=== PATIENT | male | born 1965 | race Caucasian/White ===

== ENCOUNTER 2019-09-03 17:05 | Outpatient (CLI) | payer OTHER, SELFPAY ==
--- NOTE | ~2019-09-03 | XR_ITS ---
XR tibia fibula RT 2V 09/03/2019 18:01 INDICATION: Right lower leg pain and swelling for 3 days PROCEDURE: 2 views right tibia/fibula COMPARISON: No prior studies for comparison. FINDINGS: Fracture, dislocation or subluxation is not identified. The soft tissues appear within norm al limits. No foreign bodies are identified. IMPRESSION: 1: NO ACUTE BONE OR JOINT ABNORMALITY IDENTIFIED. Reviewed, dictated and finalized at location A.
[2019-09-03 17:26] LABS: Basophils Absolute Auto 0.03 K/mm3 (0.00-0.10); Basophils Percent Auto 0.4 % (0.0-1.0); Eosinophils Absolute Auto 0.13 K/mm3 (0.02-0.50); Eosinophils Percent Auto 1.8 % (1.0-6.0); Hematocrit 40.2 % (40.0-54.0); Hemoglobin 13.5 g/dL (14.0-18.0); Immature Granulocyte Absolute 0.02 K/mm3 (0.00-0.00); Immature Granulocyte Percent A 0.3 % (0.0-0.0); Lymphocytes Absolute Auto 1.91 K/mm3 (1.10-4.50); Mean Corpuscular HGB Conc 33.6 g/dL (32.0-36.0); Mean Corpuscular Hemoglobin 30.1 pg (27.0-31.0); Mean Corpuscular Volume 89.7 fL (78.0-102.0); Mean Platelet Volume 8.8 fl (8.7-11.0); Monocytes Absolute Auto 0.62 K/mm3 (0.10-0.90); Monocytes Percent Auto 8.8 % (2.0-11.0); Neutrophils Absolute Auto 4.4 K/mm3 (1.7-7.2); Neutrophils Percent Auto 61.7 % (50.0-70.0); Platelet Count Result 294 K/mm3 (150-420); Red Blood Count 4.48 M/mm3 (4.70-6.10); Red Cell Distribution Width 11.9 % (11.6-14.4); White Blood Count 7.1 K/mm3 (4.8-10.8)
[2019-09-03 17:42] LABS: Alanine Aminotransferase 26 U/L (16-63); Albumin Level 4.2 g/dL (3.4-5.0); Alkaline Phosphatase 73 U/L (46-116); Anion Gap 9.2 mmol/L (7-16); Aspartate Amino Transferase 21 U/L (15-37); Bilirubin,Total 0.4 mg/dL (0.00-1.00); Blood Urea Nitrogen 17 mg/dL (7-18); Calcium 8.7 mg/dL (8.5-10.1); Carbon Dioxide 29 mmol/L (21-32); Chloride 103 mmol/L (98-108); Estimated Glomerular Filt Rate > 60; Glucose 84 mg/dL (70-99); Osmolality Calculated 284 mOsm/kg (285-295); Potassium 4.2 mmol/L (3.5-5.1); Sodium 137 mmol/L (136-145); Total Protein 7.1 g/dL (6.4-8.2)
== END 2019-09-03 17:06 | disposition home or self-care (01) ==
LOC: CHSLAB 17:13
PROVIDERS: PCP Family Medicine; Visit Provider Family Medicine
DX: M79.604 Pain in right leg (principal); R60.0 Localized edema
CPT/HCPCS: 36415; 73590; 80053; 85025; 85380

== ENCOUNTER 2020-09-09 17:52 | Emergency (ER) | payer OTHER, SELFPAY ==
--- NOTE | ~2020-09-09 | XR_ITS ---
EXAMINATION: XR chest 1V portable DATE: 09/09/2020 18:18 INDICATION: Syncope. Chest pressure. TECHNIQUE: A single frontal view of the chest was obtained. COMPARISON: Chest 2 views 05/27/2012 FINDINGS: The chest demonstrates clear lungs without pneumonia, pleural effusion, or pneumothorax. Th e heart size is normal. IMPRESSION: 1. No acute cardiopulmonary disease. Reviewed, dictated and finalized at location A.
--- NOTE | 2020-09-09 17:58 | ECG_ITS ---
Measurements Intervals [place] Rate: 57 P: 28 ID: 196 QRS: 33 QRSD: 95 T: 17 QT: 410 QTc: 402 Interpretive Statements SINUS BRADYCARDIA MINIMAL Q WAVES- INFERIOR LEADS BORDERLINE ECG Electronically Signed On 09-09-2020 19:58:31 CDT by Parveen Wooten D.O.
[2020-09-09 18:00] VITALS: BP 119/68; PULSE 58; RESP 18; TEMP 36.6; O2SAT 98
[2020-09-09 18:21] LABS: Basophils Absolute Auto 0.04 K/mm3 (0.00-0.10); Basophils Percent Auto 0.5 % (0.0-1.0); Eosinophils Absolute Auto 0.14 K/mm3 (0.02-0.50); Eosinophils Percent Auto 1.9 % (1.0-6.0); Hematocrit 37.7 % (40.0-54.0); Hemoglobin 12.9 g/dL (14.0-18.0); Immature Granulocyte Absolute 0.05 K/mm3 (0.00-0.00); Immature Granulocyte Percent A 0.7 % (0.0-0.0); Lymphocytes Absolute Auto 1.81 K/mm3 (1.10-4.50); Mean Corpuscular HGB Conc 34.2 g/dL (32.0-36.0); Mean Corpuscular Hemoglobin 30.6 pg (27.0-31.0); Mean Corpuscular Volume 89.3 fL (78.0-102.0); Mean Platelet Volume 8.5 fl (8.7-11.0); Monocytes Absolute Auto 0.66 K/mm3 (0.10-0.90); Monocytes Percent Auto 8.8 % (2.0-11.0); Neutrophils Absolute Auto 4.8 K/mm3 (1.7-7.2); Neutrophils Percent Auto 64.1 % (50.0-70.0); Platelet Count Result 259 K/mm3 (150-420); Red Blood Count 4.22 M/mm3 (4.70-6.10); Red Cell Distribution Width 11.9 % (11.6-14.4); White Blood Count 7.5 K/mm3 (4.8-10.8)
[2020-09-09] MEDS: LACTATED RINGERS 1,000 ML 999 ML IV CONT (18:24)
[2020-09-09 18:46] LABS: Alanine Aminotransferase 30 U/L (16-63); Albumin Level 4.1 g/dL (3.4-5.0); Alkaline Phosphatase 62 U/L (46-116); Anion Gap 13 mmol/L (8-16); Aspartate Amino Transferase 36 U/L (15-37); Bilirubin,Total 0.4 mg/dL (0.00-1.00); Blood Urea Nitrogen 27 mg/dL (7-18); Calcium 8.4 mg/dL (8.5-10.1); Carbon Dioxide 23 mmol/L (21-32); Chloride 105 mmol/L (98-108); Estimated CRCL calculation 80 ml/min; Estimated Glomerular Filt Rate > 60; Glucose 106 mg/dL (70-99); NT Pro B Type Natriuretic Pept 69 pg/mL (0-125); Osmolality Calculated 297 mOsm/kg (285-295); Potassium 3.9 mmol/L (3.5-5.1); Sodium 141 mmol/L (136-145); Total Protein 6.9 g/dL (6.4-8.2); Troponin I 4.6 ng/L (0.00-60.4)
--- NOTE | 2020-09-09 18:49 | ED.DIZZY ---
HPI - Dizziness General Chief Complaint: Syncope Stated Complaint: AMB Time Seen by Provider: 09/09/20 18:05 Source: patient, family and RN notes reviewed Mode of arrival: ambulatory History of Present Illness HPI Narrative: Patient states he was at for a relative, got to feeling he needed to smoke some cannabis to relax. He went to do this, started smoking it, and felt presyncopal, had a moderately light headed episode that lasted a few minutes, felt diaphoretic, and got bit nauseated. He has not had this before after smoking cannabis before. MD elicited complaint: dizziness, lightheadedness and near syncope Onset (ago): minute(s) Timing: sudden onset Severity: moderate Description: lightheadedness, off-balance and near-syncope Context: other (drug use) History of similar symptoms: No Exacerbating factors: standing Relieving factors: remaining still (sitting down) Associated symptoms: nausea (brief nausea which resolved) Related Data Home Medications Medication Instructions Recorded Confirmed No Home Medications 09/09/20 09/09/20 Allergies Allergy/AdvReac Type Severity Reaction Status Date / Time No Known Allergies Allergy Verified 09/09/20 18:11 Review of Systems Constitutional: Constitutional: Reports no additional constitutional complaints Eyes: Eyes: Reports no additional eye complaints ENT: Reports system reviewed and no additional complaints, except as documented Cardiovascular: Cardiovascular: Reports no additional cardiovascular complaints Respiratory: Respiratory: Reports no additional respiratory complaints Gastrointestinal: Gastrointestinal: Reports no additional gastrointestinal complaints Genitourinary: Genitourinary: Reports no additional male genitourinary complaints Musculoskeletal: Musculoskeletal: Reports no additional musculoskeletal complaints Integumentary/Breasts: Skin/Breast: Reports system reviewed and no additional complaints, except as docu Neurologic: Reports system reviewed and no additional complaints, except as documented Psychiatric: Psychiatric: Reports no additional psychiatric complaints Endocrine: Endocrine: Reports no additional endocrine complaints Hematologic/Lymphatic: Hematologic/Lymphatic: Reports no additional hematologic/lymphatic complaints Allergic/Immunologic: Allergic/Immunologic: Reports no additional allergic/immunologic complaints [facility] Past Medical History Medical History (Updated 09/09/20 @ 19:35 by Sohail Brannon MD) Pre-syncope Surgical History Surgical History (Updated 09/09/20 @ 19:00 by Sohail Brannon MD) No significant past surgical history Family History Family History (Updated 09/09/20 @ 19:22 by Sohail Brannon MD) Mother Diabetes mellitus Father Hyperlipemia Social History Social History (Updated 09/09/20 @ 19:21 by Sohail Brannon MD) Smoking status: Never smoker Substance use: current Substance use type: marijuana Living arrangements: with family Gender identity (if verbalized by the patient): Male Sexual Orientation (if Verbalized by the Patient): Straight or Heterosexual Exam Const: General: alert Orientation/consciousness: patient oriented x3 HENMT: Head: normal to inspection Ears: TM's normal bilaterally General nose exam: Normal external nose present Face and sinus: normal facial exam Mouth: Yes Normal oral and palatal mucosa present Throat: posterior oropharynx normal Eyes: Conjunctivae: conjunctivae normal Neck: Neck: normal visual inspection and no lymphadenopathy Chest: Chest palpation & inspection: normal inspection of the chest Resp: Effort & Inspection: normal respiratory effort Auscultation: clear to auscultation bilaterally Cardio: Rate: regular rate Rhythm: regular rhythm GI: Auscultation: normal bowel sounds Back/Spine/Pelvis: Back: no CVA tenderness Skin: Rashes: no rashes Neuro: General: patient oriented x3, moves all extremities and no focal motor defic
[2020-09-09 19:01] LABS: Add Urine Microscopic? NO; Appearance Urine Clear (Clear); Bilirubin Urine Negative (Negative); Blood Urine Negative (Negative); Color Urine Light Yellow (Yellow); Glucose Urine UA Negative (Negative); Ketones Urine Negative (Negative); Leukocyte Esterase Ur Negative LEU/UL (Negative); Nitrate Urine Negative (Negative); Protein Urine Negative (Negative); Urobilinogen Urine 0.2 mg/dL (0.2-1.0); pH Urine 5.5 (5.0-8.0)
[2020-09-09 19:08] LABS: Amphetamine Screen Urine Negative (Negative); Barbiturate Screen Urine Negative (Negative); Benzodiazepines Screen Urine Negative (Negative); Cannabinoid Screen Urine Positive (Negative); Cocaine Screen Urine Negative (Negative); Methadone Screen Urine Negative (Negative); Opiate Screen Urine Negative (Negative); Phencyclidine Screen Urine Negative (Negative)
[2020-09-09 19:29] LABS: D Dimer 0.19 mg/L (0.19-0.50)
[2020-09-09 19:36] VITALS: BP 134/79; PULSE 57; RESP 18; TEMP 36.6; O2SAT 100
== END 2020-09-09 19:43 | disposition home or self-care (01) ==
PROVIDERS: Emergency Provider Emergency Medicine; PCP Family Medicine
DX: R55 Syncope and collapse (principal)
CPT/HCPCS: 36415; 71045; 80053; 80307; 81003; 83880; 84484; 85025; 85380; 93005; 96360; 99283; 99284; J7120

== ENCOUNTER 2020-10-20 11:53 | Outpatient (CLI) | payer OTHER, SELFPAY ==
--- NOTE | ~2020-10-20 | XR_ITS ---
EXAMINATION: XR chest 2V 10/20/2020 12:08 INDICATION: Dyspnea. Covid. PROCEDURE: 2 view chest COMPARISON: 09/09/2020 FINDINGS: Patchy right-sided infiltrates of the mid and upper lung. The cardiomediastinal silhouette is within normal limits. There are no pleural effusions. There is no pneumothorax suspected. IMPRESSION: 1: Patchy right sided infiltrates, suspicious for pneumonia. Reviewed, dictated and finalized at location A.
== END 2020-10-20 11:54 | disposition home or self-care (01) ==
LOC: CHSIMG 11:55
PROVIDERS: PCP Family Medicine; Visit Provider Family Medicine
DX: R06.00 Dyspnea, unspecified (principal)
CPT/HCPCS: 71046

== ENCOUNTER 2021-10-19 19:12 | Emergency (ER) | payer BC, SELFPAY ==
[2021-10-19] VITALS (14 sets, daily range): BP systolic 113–142; BP diastolic 68–87; PULSE 67–84; RESP 17–23; TEMP 36.2–36.4; O2SAT 95–100
--- NOTE | ~2021-10-19 | CT_ITS ---
EXAMINATION: CT brain wo con DATE: 10/19/2021 19:53 INDICATION: SYNCOPE . TECHNIQUE: Computed tomography (CT) of the head was performed without intravenous contrast. The mA wa s adjusted according to patient size. Iterative reconstruction technique was employed. The dose-lengt h product was 756.67 mGy-cm. COMPARISON: None FINDINGS: No acute intracranial hemorrhage or extra-axial fluid collection. No hydrocephalus, mass, or herniation. No acute ischemic infarct. Unremarkable dural venous sinus attenuation. No acute osseous abnormality. Minimal right middle ethmoid air cell mucosal thickening, the remaining aerated spaces are clear. Mild chronic white matter change. Partially empty sella. IMPRESSION: No acute intracranial process. Reviewed, dictated and finalized at location K.
--- NOTE | 2021-10-19 19:15 | ED.SYNCOPE ---
HPI - Syncope General Chief Complaint: Weakness Stated Complaint: AMBULANCE Time Seen by Provider: 10/19/21 19:15 Source: patient Mode of arrival: EMS History of Present Illness HPI narrative: 56-year-old male with a history of hypertension, chronic marijuana use presented to the ER via EMS -- felt lightheaded after smoking marijuana. Called EMS. The patient was noted to be hypotensive and bradycardic with a heart rate in the 40s. The patient had is 10-15 second episodes of lightheadedness /LOC. The patient was noted to have normal blood sugar. He had an EKG which revealed sinus bradycardia without any ST-T changes. The patient received naloxone without any change in his clinical status. No seizure activity. No incontinence. EN route to the hospital the patient was noted to have bradycardia, hypotension and episodes of unresponsiveness. -- Headache which is noted on the top of his head and rated as 4/10. -- On arrival to the ER the patient is noted to be awake and hemodynamically stable. No focal neuro deficits noted. -- The patient has had multiple episodes of syncopal spells similar to this in the past. He presented to the ER around 1 year ago for similar symptoms. The patient uses marijuana on a chronic basis but most of his symptoms appear to have come on after he smoked marijuana. MD complaint: loss of consciousness and felt faint Onset (ago): hour(s) ( Started 1 hour ago.) Prodromal symptoms: none Witnessed: Yes - by EMS Context: at rest Injuries sustained associated with event: none Current symptoms: none History: previous syncopal episode Treatments prior to arrival: none ( He received IV fluids and IV naloxone.) Related Data Home Medications Medication Instructions Recorded Confirmed No Home Medications 10/19/21 10/19/21 Allergies Allergy/AdvReac Type Severity Reaction Status Date / Time No Known Allergies Allergy Verified 10/19/21 19:28 Review of Systems Review of Systems: All systems reviewed & are unremarkable except as noted in HPI and below Constitutional: Constitutional: Reports as per HPI and Reports no additional constitutional complaints Eyes: Eyes: Reports as per HPI and Reports no additional eye complaints ENT: Reports system reviewed and no additional complaints, except as documented and Reports as per HPI Cardiovascular: Cardiovascular: Reports as per HPI and Reports no additional cardiovascular complaints Respiratory: Respiratory: Reports as per HPI and Reports no additional respiratory complaints Gastrointestinal: Gastrointestinal: Reports as per HPI and Reports no additional gastrointestinal complaints Genitourinary: Genitourinary: Reports no additional male genitourinary complaints and Reports as per HPI Musculoskeletal: Musculoskeletal: Reports no additional musculoskeletal complaints and Reports as per HPI Integumentary/Breasts: Skin/Breast: Reports system reviewed and no additional complaints, except as docu and Reports as per HPI Neurologic: Reports system reviewed and no additional complaints, except as documented, Reports dizziness, Reports syncope and Reports headache(s) Psychiatric: Psychiatric: Reports no additional psychiatric complaints and Reports as per HPI Endocrine: Endocrine: Reports no additional endocrine complaints and Reports as per HPI Hematologic/Lymphatic: Hematologic/Lymphatic: Reports no additional hematologic/lymphatic complaints and Reports as per HPI Allergic/Immunologic: Allergic/Immunologic: Reports no additional allergic/immunologic complaints and Reports as per HPI PMFSH Past Medical History Medical History Pre-syncope Surgical History Surgical History No significant past surgical history Family History Family History Mother Diabetes mellitus Father Hyperlipem
--- NOTE | 2021-10-19 19:37 | ECG_ITS ---
Measurements Intervals [place] Rate: 69 P: 55 [place]: 189 QRS: 54 QRSD: 98 T: 27 QT: 374 QTc: 403 Interpretive Statements SINUS RHYTHM MINIMAL Q WAVES- INFERIOR LEADS BASELINE WANDER- V4-V6 BORDERLINE ECG COMPARED TO ECG 09/09/2020 18:08:09 SINUS RHYTHM NOW PRESENT Electronically Signed On 10-19-2021 21:37:41 CDT by Parveen Wooten D.O.
[2021-10-19 20:10] LABS: Basophils Absolute Auto 0.04 K/mm3 (0.00-0.10); Basophils Percent Auto 0.4 % (0.0-1.0); Eosinophils Absolute Auto 0.12 K/mm3 (0.02-0.50); Eosinophils Percent Auto 1.2 % (1.0-6.0); Hematocrit 38.5 % (40.0-54.0); Immature Granulocyte Absolute 0.05 K/mm3 (0.00-0.00); Immature Granulocyte Percent A 0.5 % (0.0-0.0); Lymphocytes Absolute Auto 1.32 K/mm3 (1.10-4.50); Lymphocytes Percent Auto 13.5 % (18.0-42.0); Mean Corpuscular HGB Conc 33.8 g/dL (32.0-36.0); Mean Corpuscular Hemoglobin 30.2 pg (27.0-31.0); Mean Corpuscular Volume 89.5 fL (78.0-102.0); Monocytes Absolute Auto 0.61 K/mm3 (0.10-0.90); Monocytes Percent Auto 6.2 % (2.0-11.0); Neutrophils Absolute Auto 7.6 K/mm3 (1.7-7.2); Neutrophils Percent Auto 78.2 % (50.0-70.0); Platelet Count Result 284 K/mm3 (150-420); Red Cell Distribution Width 11.9 % (11.6-14.4); White Blood Count 9.8 K/mm3 (4.8-10.8)
[2021-10-19 20:18] LABS: Partial Thromboplastin Time 21.7 SEC (23.90-30.70); Prothrombin Time 10.5 Seconds (9.50-12.10)
[2021-10-19 20:25] LABS: Lactic Acid Reflex 1.5 mmol/L (0.4-2.0)
[2021-10-19 20:29] LABS: Alanine Aminotransferase 24 U/L (16-63); Albumin Level 3.7 g/dL (3.4-5.0); Alkaline Phosphatase 74 U/L (46-116); Anion Gap 8 mmol/L (8-16); Aspartate Amino Transferase 19 U/L (15-37); Bilirubin,Total 0.3 mg/dL (0.00-1.00); Blood Urea Nitrogen 36 mg/dL (7-18); Calcium 8.6 mg/dL (8.5-10.1); Carbon Dioxide 25 mmol/L (21-32); Chloride 107 mmol/L (98-108); Estimated CRCL calculation 59 ml/min; Estimated Glomerular Filt Rate 56; Glucose 118 mg/dL (70-99); Osmolality Calculated 299 mOsm/kg (285-295); Potassium 3.6 mmol/L (3.5-5.1); Sodium 140 mmol/L (136-145); Thyroid Stimulating Hormone 1.83 uIU/mL (0.36-3.74); Total Protein 6.4 g/dL (6.4-8.2); Troponin I 7.4 ng/L (0.00-60.4)
--- NOTE | 2021-10-19 20:46 | PC.NURSE ---
EMS NSS running at 125mls/hr. After seeing lab results, ERP ordered for the rest of EMS bag to flow wide open. RN verbalized order and opened the fluids wide open.
[2021-10-19 20:49] LABS: Add Urine Microscopic? NO; Appearance Urine Clear (Clear); Bilirubin Urine Negative (Negative); Blood Urine Negative (Negative); Color Urine Light Yellow (Yellow); Glucose Urine UA Negative (Negative); Ketones Urine Negative (Negative); Leukocyte Esterase Ur Negative (Negative); Nitrate Urine Negative (Negative); Protein Urine Negative (Negative); Specific Grav Ur 1.025 (1.010-1.020); Urobilinogen Urine 0.2 mg/dL (0.2-1.0); pH Urine 5.5 (5.0-8.0)
[2021-10-19 20:59] LABS: Amphetamine Screen Urine Negative (Negative); Barbiturate Screen Urine Negative (Negative); Benzodiazepines Screen Urine Negative (Negative); Cannabinoid Screen Urine Positive (Negative); Cocaine Screen Urine Negative (Negative); Methadone Screen Urine Negative (Negative); Opiate Screen Urine Negative (Negative); Phencyclidine Screen Urine Negative (Negative)
--- NOTE | 2021-10-19 21:32 | PC.NURSE ---
ERP states that he wants to see how pt does while walking. Pt's inital EMS 1000ml NSS bag has finished and RN disconnects pt. Pt stands on his own power and is able to ambulate to the end of the niño and back without issue. Pt denies any dizziness or feeling lightheaded. Pt states he feels much better. RN reports findings to ERP. ERP states pt will be cleared to be discharged.
== END 2021-10-19 21:50 | disposition home or self-care (01) ==
PROVIDERS: Emergency Provider Internal Medicine Critical Care Medicine; PCP Family Medicine
DX: R55 Syncope and collapse (principal); N19 Unspecified kidney failure; R41.82 Altered mental status, unspecified
CPT/HCPCS: 36415; 70450; 80053; 80307; 81003; 83605; 84443; 84484; 85025; 85610; 85730; 93005; 99284

== ENCOUNTER 2022-12-22 11:59 | Outpatient (CLI) | payer BC, SELFPAY ==
--- NOTE | ~2022-12-22 | XR_ITS ---
XR elbow LT min 3V DATE: 12/22/2022 12:19 INDICATION: Posterior elbow pain, chronic TECHNIQUE: 4 views COMPARISON: None FINDINGS: No fracture or dislocation or joint effusion. No periosteal reaction or bone destruction. J oint spaces are well preserved. IMPRESSION: Negative Reviewed, dictated and finalized at location B. [employer] IMPRESSION: Negative
--- NOTE | ~2022-12-22 | XR_ITS ---
XR hand LT min 3V DATE: 12/22/2022 12:19 INDICATION: Cyst popped on top of hand 2 months ago. TECHNIQUE: 3 views COMPARISON: None FINDINGS: There is mild soft tissue swelling of the dorsum of the proximal hand. No fracture, dislocation, periosteal reaction or bone destruction, erosive change or chondrocalcinosi s. Joint spaces are well preserved. IMPRESSION: Mild proximal dorsal soft tissue hand swelling No bony abnormality Reviewed, dictated and finalized at location B. [address]
== END 2022-12-22 12:00 | disposition home or self-care (01) ==
LOC: CHSIMG 12:01
PROVIDERS: PCP Family Medicine; Visit Provider Family Medicine
DX: M25.529 Pain in unspecified elbow (principal); M79.642 Pain in left hand; M79.89 Other specified soft tissue disorders
CPT/HCPCS: 73080; 73130

== ENCOUNTER 2023-04-11 17:15 | Outpatient (CLI) | payer BC, SELFPAY ==
[2023-04-11 17:39] LABS: Basophils Absolute Auto 0.03 K/mm3 (0.00-0.10); Basophils Percent Auto 0.4 % (0.0-1.0); Eosinophils Absolute Auto 0.19 K/mm3 (0.02-0.50); Eosinophils Percent Auto 2.5 % (1.0-6.0); Hematocrit 40.9 % (40.0-54.0); Hemoglobin 13.8 g/dL (14.0-18.0); Immature Granulocyte Absolute 0.02 K/mm3 (0.00-0.00); Immature Granulocyte Percent A 0.3 % (0.0-0.0); Lymphocytes Absolute Auto 2.09 K/mm3 (1.10-4.50); Lymphocytes Percent Auto 27.9 % (18.0-42.0); Mean Corpuscular HGB Conc 33.7 g/dL (32.0-36.0); Mean Corpuscular Hemoglobin 29.6 pg (27.0-31.0); Mean Corpuscular Volume 87.6 fL (78.0-102.0); Mean Platelet Volume 8.4 fl (8.7-11.0); Monocytes Absolute Auto 0.79 K/mm3 (0.10-0.90); Monocytes Percent Auto 10.5 % (2.0-11.0); Neutrophils Absolute Auto 4.4 K/mm3 (1.7-7.2); Neutrophils Percent Auto 58.4 % (50.0-70.0); Platelet Count Result 283 K/mm3 (150-420); Red Blood Count 4.67 M/mm3 (4.70-6.10); Red Cell Distribution Width 11.9 % (11.6-14.4); White Blood Count 7.5 K/mm3 (4.8-10.8)
[2023-04-11 19:06] LABS: Alanine Aminotransferase 39 U/L (16-63); Albumin Level 4.3 g/dL (3.4-5.0); Alkaline Phosphatase 72 U/L (46-116); Anion Gap 7 mmol/L (8-16); Aspartate Amino Transferase 23 U/L (15-37); Bilirubin,Total 0.4 mg/dL (0.00-1.00); Blood Urea Nitrogen 29 mg/dL (7-18); Calcium 8.3 mg/dL (8.5-10.1); Carbon Dioxide 29 mmol/L (21-32); Chloride 101 mmol/L (98-108); Estimated Glomerular Filt Rate > 60; Glucose 82 mg/dL (70-99); Osmolality Calculated 288 mOsm/kg (285-295); Potassium 4.4 mmol/L (3.5-5.1); Sodium 137 mmol/L (136-145); Thyroid Stimulating Hormone 2.47 uIU/mL (0.36-3.74); Total Protein 6.8 g/dL (6.4-8.2)
[2023-04-11 20:46] LABS: Appearance Urine Clear (Clear); Bilirubin Urine Negative (Negative); Blood Urine Negative (Negative); Color Urine Light Yellow (Yellow); Glucose Urine UA Negative (Negative); Ketones Urine Negative (Negative); Leukocyte Esterase Ur Negative (Negative); Nitrate Urine Negative (Negative); Protein Urine Negative (Negative); Specific Grav Ur 1.025 (1.010-1.020); Urobilinogen Urine 0.2 mg/dL (0.2-1.0)
[2023-04-11 20:50] LABS: Add Urine Microscopic? NO
[2023-04-11 20:52] LABS: Creatinine Urine 63.41 mg/dL (40-278); MALB Creatinine Ratio 108.1 mg/g (0-30); Microalbumin Urine Random 68.6 mg/L
== END 2023-04-11 17:16 | disposition home or self-care (01) ==
PROVIDERS: PCP Family Medicine; Visit Provider Family Medicine
DX: I10 Essential (primary) hypertension (principal)
CPT/HCPCS: 36415; 80053; 81003; 82043; 84443; 85025

== ENCOUNTER 2023-09-16 07:32 | Emergency (ER) | payer OTHER, SELFPAY ==
--- NOTE | ~2023-09-16 | XR_ITS ---
EXAMINATION: XR knee RT 3V DATE: 09/16/2023 07:55 INDICATION: Right knee injury and pain. TECHNIQUE: 3 views of right knee were obtained. COMPARISON: Right tibia and fibula radiographs 09/03/2019 FINDINGS: Bone alignment is normal. No fracture. There is mild osteoarthritis of lateral and patellof emoral compartments. There is a small knee joint effusion. IMPRESSION: 1. Mild right knee osteoarthritis. 2. Small right knee joint effusion. Reviewed, dictated and finalized at location E.
[2023-09-16 07:32] VITALS: BP 156/83; PULSE 70; RESP 16; TEMP 36.3; O2SAT 97
--- NOTE | 2023-09-16 07:40 | ED.EXTPRO ---
HPI - Extremity Problem General Chief complaint: Extremity Injury, Lower Stated complaint: right leg injury--WORK COMP Source: patient Mode of arrival: ambulatory Limitations: no limitations History of Present Illness HPI Narrative: 58 year old male presents to the Emergency Department complaining of right knee injury, pain, swelling. 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 States 2 weeks ago he was unloading 100 pound boxes of meat from truck and twisted his knee. It was sore then. Yesterday he was cutting meat and his saw blade broke, which makes a loud sound, and it startled him. He jumped and his knee twisted. Now he is having increased pain and swelling. Pain with weight bearing and movement. Pain radiating up his upper leg. No numbness or tingling. MD Complaint: extremity pain (right knee), extremity swelling (right knee), joint swelling (right knee) and joint paint (right knee) Onset (ago): week(s) (2, worse since yesterday) Pain Consistency: constant Location: right, lower extremity and knee Quality: aching Radiation: proximal (up right upper leg) Relieving factors: nothing Exacerbating factors: weight bearing and walking Associated symptoms: denies other symptoms Related Data Home Medications Medication Instructions Recorded Confirmed losartan 100 1 tablet PO DAILY 05/22/23 05/22/23 mg-hydrochlorothiazide 12.5 mg tablet Allergies Allergy/AdvReac Type Severity Reaction Status Date / Time No Known Allergies Allergy Verified 05/22/23 15:11 Review of Systems Review of Systems: All systems reviewed & are unremarkable except as noted in HPI and below Constitutional: Constitutional: Reports as per HPI Eyes: Eyes: Reports as per HPI ENT: Reports system reviewed and no additional complaints, except as documented Cardiovascular: Cardiovascular: Reports as per HPI Respiratory: Respiratory: Reports as per HPI Gastrointestinal: Gastrointestinal: Reports as per HPI Genitourinary: Genitourinary: Reports no additional male genitourinary complaints Musculoskeletal: Musculoskeletal: Reports no additional musculoskeletal complaints, Reports arthralgias (right knee) and Reports joint swelling (right knee) Integumentary/Breasts: Skin/Breast: Reports system reviewed and no additional complaints, except as docu Neurologic: Reports system reviewed and no additional complaints, except as documented Psychiatric: Psychiatric: Reports no additional psychiatric complaints Endocrine: Endocrine: Reports no additional endocrine complaints Hematologic/Lymphatic: Hematologic/Lymphatic: Reports no additional hematologic/lymphatic complaints Allergic/Immunologic: Allergic/Immunologic: Reports no additional allergic/immunologic complaints PMFSH Past Medical History Medical History Pre-syncope Surgical History Surgical History No significant past surgical history Family History Family History Mother Diabetes mellitus Father Hyperlipemia Social History Social History Smoking status: Former smoker Alcohol intake: never Substance use: current Substance use type: marijuana Do You Feel Safe in your Home?: Yes Lack of Transportation: No Lack of Food: Never True Current Housing: I Have Housing Concerned About Future Housing: No Difficulty Paying Gas/Electric Bills: No Difficulty Paying for Meds: No Currently Unemployed: No Education: High School Diploma/GED Difficulty w/ Childcare or Family Care: No Living arrangements: with family Gender identity (if verbalized by the patient): Male Sexual Orientation (if Verbalized by the Patient): Straight or Heterosexual Exam Const: General: healthy appearing Nutritional Appearance: well nourished Orientation/c
== END 2023-09-16 08:34 | disposition home or self-care (01) ==
PROVIDERS: Emergency Provider Emergency Medicine; PCP Family Medicine
DX: S83.91XA Sprain of unspecified site of right knee, initial encounter (principal); M25.461 Effusion, right knee; M23.91 Unspecified internal derangement of right knee; Z87.891 Personal history of nicotine dependence; X50.0XXA Overexertion from strenuous movement or load, initial encounter
CPT/HCPCS: 73562; 99283; L1830

== ENCOUNTER 2023-09-25 07:54 | Outpatient (RCR) | payer OTHER, SELFPAY ==
--- NOTE | 2023-09-25 08:04 | OPREHPOC ---
Outpatient Therapy Plan of Care This is a Multidisciplinary Plan of Care that may contain components documented by all disciplines (PT, OT, and ST.) PT Problem 1 PT Problem #1 Knowledge Deficit PT Goal 1 Goal / Goal Update 1. independent and compliant with HEP Target Visit 6 PT Problem 2 PT Problem #2 Pain PT Goal 1 Goal / Goal Update 1. reduce pain to 3/10 at worst or less Target Visit 12 PT Problem 3 PT Problem #3 Impaired Range of Motion PT Goal 1 Goal / Goal Update 1. 0-130 degrees or better active R knee rom Target Visit 12 PT Problem 4 PT Problem #4 Impaired Strength PT Goal 1 Goal / Goal Update 1. 5/5 R knee strength 2. 5/5 R ankle DF 3. 4+/5 or better bilateral hip strength overall Target Visit 12 PT Problem 5 PT Problem #5 Impaired Functional Mobil PT Goal 1 Goal / Goal Update 1. LEFS to display 20% or less functional deficits 2. patient to ambulate with normal gait mechanics without an AD or brace. 3. patient to ambulate up and down steps with reciprocal mechanics and 1 hand rail assist or less 4. patient to return to daily walking regime 5. patient to return to prior level work activities/duties Target Visit 12
--- NOTE | 2023-09-25 08:04 | PTOPEVAL1 ---
Assessment and note entered by JT File, PT Evaluation Information Assessment Status Evaluation ICD-10 Condition Codes (PT) M25.561 Onset 09/15/23 Subjective Information patient reports he injured his knee at work. he reports he was running a band saw. he reports the band saw stopped working and he turned to get away from it. he reports he planted his foot and turned, and reports his body moved but his foot did not. he reports he did not end up going to the ER til the next morning. he reports he was unable to work due to swelling in the R knee. he reports he has pain all the time. he reports sitting in the chair he has a pain along the inside and of the knee and up the inner thigh. he reports bending is tight, and he feels like he has a sundar horse in the back of the leg the all the time. he reports he has been better since getting naproxen. he reports he did have xrays in the ER. he reports majority of the pain is across the knee . he has been in an immobilizer since coming to the ER on 09/16/23. Reported Pain Level Pain Score 7: Self Report Assessment PT Clinical Summary mr. bonner is a 58 yo man who presents to skilled PT services for evaluation of an injury to the R knee that occurred at work. his injury is the result of a twisting motion on the R LE to get out of the way of a broken saw. he displays decreased rom, weakness, abnormal gait mechanics, and special testing that indicates an injury to the meniscus of the R knee. he would benefit from continued skilled PT to address his objective/ functional deficits, but would benefit from MRI evaluation of the R knee to assess for surgical needs. patients goal is to return to prior level work and functional performance. Plan of Care Interventions Electrical Stimulation,Gait Training,Hot Pack/Cold Pack,Manual Therapy,Neuro Re-education,Patient/ Caregiver Educati,Therapeutic Activities, Therapeutic Exercise PT Services Indicated Yes Treatment Frequency and 3x weekly for 12 visits Duration These treatments will address the objective and functional deficits as defined above. The patient will be advanced safely and appropriately in order for the patient to progress towards his/her prior level of function. Additional exercises will be introduced and as well as a comprehensive home exercise program upon discharge, if needed, ?to ensure carryover of functional gains achieved in the clinic. This treatment plan has been reviewed and agreement upon by the patient.
--- NOTE | 2023-10-15 07:57 | PTOPPROG ---
Assessment and note entered by [facility] Evaluation Information Assessment Status Progress ICD-10 Condition Codes (PT) M25.561 Onset 09/15/23 Subjective Information Pt. reports that he is better in regards to pain. He states that he still has a sense of fullness in the knee joint. He reports that stairs continues to increase his pain. Assessment PT Clinical Summary Mr. Miller has attended a total of 10 treatment sessions. In this time he has demonstrates progress in regards to pain reports, ROM and strength. He continues to be limited by pain. We will continue with the current POC continuing to improve function and proximal l.e. strength Plan of Care Interventions Electrical Stimulation,Gait Training,Hot Pack/Cold Pack,Manual Therapy,Neuro Re-education,Patient/ Caregiver Educati,Therapeutic Activities, Therapeutic Exercise PT Services Indicated Yes Treatment Frequency and Continue with 2 remaining sessions on pt. POC Duration focusing on normalizing gait and improving remaining strength deficits. These treatments will address the objective and functional deficits as defined above. The patient will be advanced safely and appropriately in order for the patient to progress towards his/her prior level of function. Additional exercises will be introduced and as well as a comprehensive home exercise program upon discharge, if needed, ?to ensure carryover of functional gains achieved in the clinic. This treatment plan has been reviewed and agreement upon by the patient.
--- NOTE | 2023-10-18 08:01 | OPREHPOC ---
Outpatient Therapy Plan of Care This is a Multidisciplinary Plan of Care that may contain components documented by all disciplines (PT, OT, and ST.) PT Problem 1 PT Problem #1 Knowledge Deficit PT Goal 1 Goal / Goal Update 1. independent and compliant with HEP Target Visit 6 Progress Met PT Problem 2 PT Problem #2 Pain PT Goal 1 Goal / Goal Update 1. reduce pain to 3/10 at worst or less Target Visit 12 Progress Not Met PT Problem 3 PT Problem #3 Impaired Range of Motion PT Goal 1 Goal / Goal Update 1. 0-130 degrees or better active R knee rom Target Visit 12 Progress Partially Met PT Problem 4 PT Problem #4 Impaired Strength PT Goal 1 Goal / Goal Update 1. 5/5 R knee strength 2. 5/5 R ankle DF 3. 4+/5 or better bilateral hip strength overall Target Visit 12 Progress Met PT Problem 5 PT Problem #5 Impaired Functional Mobil PT Goal 1 Goal / Goal Update 1. LEFS to display 20% or less functional deficits . not met 2. patient to ambulate with normal gait mechanics without an AD or brace. met 3. patient to ambulate up and down steps with reciprocal mechanics and 1 hand rail assist or less. met 4. patient to return to daily walking regime. not met 5. patient to return to prior level work activities/duties. not met Target Visit 12 Progress Partially Met
--- NOTE | 2023-10-18 08:01 | PTOPREEVAL ---
Assessment and note entered by [facility]T [facility], PT Evaluation Information Assessment Status Re-evaluation ICD-10 Condition Codes (PT) M25.561 Onset 09/15/23 Subjective Information patient reports he has a visit to see an ortho this coming sunday. he reports he is anticipating needing surgery. he reports the knee still bothers him, especially with increased activities/ work on cars and duties around the house. he reports yesterday he had pain in the back of the R thigh yesterday that felt like someone kicked him , and today his calf feels tight. patient reports the R knee hurts if he keeps it straight too long, or if he keeps it bent too long. Reported Pain Level Pain Score 2: Self Report Pain Score 5: Self Report Assessment PT Clinical Summary mr. bonner presents to skilled PT for his 12th skilled therapy visit. he presents with improved R knee rom, strength, gait mechanics, and functional activity performance today. he has met several goals for skilled PT, but still lacks achievement of his functional goals and ability to return to full duty work. patient has an evaluation with the Ortho this coming well, and will likely have surgery on his torn meniscus. continued skilled PT will be put on hold until after his ortho visit, and more likely until after his surgery. Plan of Care Interventions Electrical Stimulation,Gait Training,Hot Pack/Cold Pack,Manual Therapy,Neuro Re-education,Patient/ Caregiver Educati,Therapeutic Activities, Therapeutic Exercise PT Services Indicated Yes Treatment Frequency and hold therapy to see ortho and potentially have Duration meniscus surgery on the R knee. These treatments will address the objective and functional deficits as defined above. The patient will be advanced safely and appropriately in order for the patient to progress towards his/her prior level of function. Additional exercises will be introduced and as well as a comprehensive home exercise program upon discharge, if needed, ?to ensure carryover of functional gains achieved in the clinic. This treatment plan has been reviewed and agreement upon by the patient.
--- NOTE | 2023-11-28 09:34 | PTOPEVAL1 ---
Assessment and note entered by Cem [facility] Evaluation Information Assessment Status Re-evaluation Diagnosis s/p right knee arthroscopy ICD-10 Condition Codes (PT) M25.561 Onset 11/05/23 Subjective Information Pt. re-enters the clinic post right knee arthroscopy. He states that he was on crutches for 7-8 days following surgery. He states that his pain is gradually decreasing since surgery. He reports pain is a 3/10 at rest and increases to 6/ 10 with walking on uneven terrain. He states that he has no set return date for work. 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 He reports he enjoyed walking long distances for exercise, but has held off walking since surgery. He states that his goal is to be able to return to work related duties and reduce pain. Reported Pain Level Pain Score 3: Self Report Assessment PT Clinical Summary Pt. re-enters the clinic 3 weeks post right knee arthroscopy. He presents with slight mobility impairment, slight strength impairment, pain and impaired gait limiting his participation in work related duties. Recommend continued skilled PT in order to improve these areas to allow the pt. to be able to perform all IADL's and work duties without limitation. Goal target dates adjusted to reflect current POC and all pre-operative goals adjusted to reflect current status. Plan of Care Interventions Electrical Stimulation,Gait Training,Hot Pack/Cold Pack,Intermittent Compression,Manual Therapy, Neuro Re-education,Patient/Caregiver Educati, Therapeutic Activities,Therapeutic Exercise PT Services Indicated Yes Treatment Frequency and 3x/week x 12 visits Duration These treatments will address the objective and functional deficits as defined above. The patient will be advanced safely and appropriately in order for the patient to progress towards his/her prior level of function. Additional exercises will be introduced and as well as a comprehensive home exercise program upon discharge, if needed, ?to ensure carryover of functional gains achieved in the clinic. This treatment plan has been reviewed and agreement upon by the patient.
--- NOTE | 2023-11-28 09:41 | OPREHPOC ---
Outpatient Therapy Plan of Care This is a Multidisciplinary Plan of Care that may contain components documented by all disciplines (PT, OT, and ST.) PT Problem 1 PT Problem #1 Knowledge Deficit PT Goal 1 Goal / Goal Update 1. independent and compliant with HEP Target Visit 2 Progress Not Met PT Problem 2 PT Problem #2 Pain PT Goal 1 Goal / Goal Update 1. reduce pain to 1/10 at worst or less Target Visit 12 Progress Not Met PT Problem 3 PT Problem #3 Impaired Range of Motion PT Goal 1 Goal / Goal Update 1. 0-130 degrees or better active R knee rom Target Visit 12 Progress Not Met PT Problem 4 PT Problem #4 Impaired Strength PT Goal 1 Goal / Goal Update 1. 5/5 R knee strength 2. 5/5 R ankle DF 3. 5/5 or better bilateral hip strength overall Target Visit 12 Progress Not Met PT Problem 5 PT Problem #5 Impaired Functional Mobil PT Goal 1 Goal / Goal Update 1. LEFS to display 20% or less functional deficits . not met 2. patient to ambulate with normal gait mechanics without an AD or brace. met 3. patient to ambulate up and down steps with reciprocal mechanics and 1 hand rail assist or less. met 4. patient to return to daily walking regime. not met 5. patient to return to prior level work activities/duties. not met Target Visit 12 Progress Not Met
--- NOTE | 2023-11-29 07:32 | PCPTNOTE ---
No call, no show. VM left for pt.
--- NOTE | 2023-12-10 07:00 | PCPTNOTE ---
Cancelled session. Reports he has covid.
== END 2023-12-24 23:59 | disposition home or self-care (01) ==
LOC: CHSPT 07:54
PROVIDERS: PCP Family Medicine; Visit Provider Orthopaedic Surgery
DX: M25.561 Pain in right knee (principal)
CPT/HCPCS: 97014; 97110; 97112; 97150; 97161; 97530; G0283

== ENCOUNTER 2023-10-06 07:38 | Outpatient (CLI) | payer OTHER, SELFPAY ==
--- NOTE | ~2023-10-06 | MR_ITS ---
EXAMINATION: MR knee RT wo con DATE: 10/06/2023 08:32 INDICATION: Right knee pain TECHNIQUE: Magnetic resonance imaging (MRI) of the right knee was performed without intravenous contr ast. Sequences included coronal PD-weighted FSE, coronal PD-weighted FS FSE, sagittal T2-weighted FS E, sagittal PD-weighted FS FSE and axial PD weighted fat saturated FSE. COMPARISON: None. FINDINGS: Medial compartment: Complex tear of the body and posterior horn of the medial meniscus with longitudinal horizontal tear plane extending to the inferior articular surface as well as an intersecting vertical radial versus p arrot beak configuration tear plane at the posterior horn. Partial-thickness chondral fissuring along the lateral margin of the central weightbearing medial femoral condyle. Remaining cartilage in the m edial compartment is normal. Lateral compartment: Partially discoid lateral meniscus with small radial tear plane along the inner free edge at the junc tion of the anterior horn and anterior body of the lateral meniscus. Articular cartilage is normal. Patellofemoral compartment: Full and near full-thickness chondral fissuring at the cephalad aspect of the patellar apical ridge a nd at the central to inferior aspect of the medial patellar facet, bladder with mild underlying subar ticular edema-like signal change. Trochlear cartilage is normal. Ligaments and tendons: Anterior and posterior cruciate ligaments are normal. The medial collateral ligament and fibular yoav ateral ligament complex are normal. The extensor mechanism is normal. The visualized medial and later al hamstring tendons as well as the iliotibial band are normal. Fluid: Small right knee joint effusion. No loose osteochondral bodies identified. Moderate sized Marie's cys t. Epimysial edema along the proximal gastrocnemius muscle bellies more prominent at the medial head where there is also mild feathery muscular edema. This could be related to low-grade muscle strain or partial rupture of the Marie's cyst with leakage of fluid into the surrounding soft tissue planes. Osseous/other: Normal marrow signal. No fracture or pathologic marrow replacing process. IMPRESSION: 1. Complex tear of the body and posterior horn of the medial meniscus. 2. 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 3. Mild patellofemoral osteoarthritis with moderate and high-grade patellar chondromalacia and minima l osteoarthritis in the medial compartment with moderate grade chondral malacia along the lateral mar gin of the central weightbearing medial femoral condyle. 4. Small right knee joint effusion and moderate-sized Marie's cyst. 5. Increased fluid signal at the periphery of the proximal gastrectomy medius muscle prominent at the medial head which could be related to low-grade muscle strain or partial rupture of the Marie's cyst with extravasation of fluid into the adjacent soft tissue planes. Reviewed, dictated and finalized at location A. IMPRESSION: 1. Complex tear of the body and posterior horn of the medial meniscus. 2. Discoid lateral meniscus with small radial tear along the inner free edge at the junction of the body and anterior horn. 3. Mild patellofemoral osteoarthritis with moderate and high-grade patellar cho ndromalacia and minimal osteoarthritis in the medial compartment with moderate grade chondral malacia along the lateral margin of the central weightbearing me dial femoral condyle. 4. Small right knee joint effusion and moderate-sized Marie's cyst. 5. Increased fluid signal at the periphery of the proximal gastrectomy medius m uscle prominent at the medial head which could be related to low-grade muscle s train or partial rupture of the Marie'
== END 2023-10-06 07:39 | disposition home or self-care (01) ==
LOC: CHSIMG 07:39
PROVIDERS: PCP Family Medicine; Visit Provider Family Medicine
DX: M25.561 Pain in right knee (principal); M23.8X1 Other internal derangements of right knee; M71.21 Synovial cyst of popliteal space [Baker], right knee
CPT/HCPCS: 73721

== ENCOUNTER 2023-10-30 12:10 | Outpatient (CLI) | payer OTHER, SELFPAY ==
[2023-10-30 13:39] LABS: Anion Gap 9 mmol/L (4-12); Blood Urea Nitrogen 16 mg/dL (9-20); Calcium 8.8 mg/dL (8.4-10.2); Carbon Dioxide 31 mmol/L (22-30); Chloride 90 mmol/L (98-107); Estimated Glomerular Filt Rate > 60; Glucose 87 mg/dL (65-110); Potassium 4.6 mmol/L (3.4-5.0); Sodium 130 mmol/L (137-145)
== END 2023-10-30 12:11 | disposition home or self-care (01) ==
LOC: ANHSURGERY 12:16
PROVIDERS: Anesthesiology; PCP Family Medicine; Visit Provider Orthopaedic Surgery
DX: I10 Essential (primary) hypertension (principal); Z79.899 Other long term (current) drug therapy; Z01.818 Encounter for other preprocedural examination
CPT/HCPCS: 36415; 80048

== ENCOUNTER 2023-11-05 00:23 | Day surgery (SDC) | payer OTHER, SELFPAY ==
[2023-10-29 11:09] VITALS: BMI 35.6
--- NOTE | 2023-10-29 11:11 | PC.NURSE ---
Report to the Outpatient Waiting Room, entrance under the green pavilion located off [facility], at time _0800_ on date _[id number]_. Planned Procedure Time: _1000_.? Time changes happen often and if your time is changed the preop area will call you the afternoon before. - You and your visitor will be asked to self-screen and do not enter if you have any COVID symptoms. Please call surgeon if you need to reschedule. - A mask is optional within the hospital at this time. Patients may have clear liquids (water, carbonated beverages, clear teas, apple juice) until 3 hours prior to surgery with a maximum of 20 ounces. - No food from midnight until time of surgery and no smoking Take only the following medications with a SIP of water on the morning of surgery: Metoprolol DO NOT STOP ANY OF YOUR OTHER PRESCRIPTION MEDICATIONS PRIOR TO SURGERY EXCEPT THE FOLLOWING Medications to discontinue per physician None__ Please no make-up, nail romanian, hairspray, perfume, deodorant, or body powder the day of surgery.? No jewelry (including any body piercings) or valuables the day of surgery, leave them at home.? Please take a shower or bath the night before, or the morning of, surgery with an antibacterial soap.? Wear comfortable, loose fitting clothing.? - Jewelry must be removed prior to entering the operating room.? Rings and piercings that are not removed may be cut off. - The hospital will not accept responsibility for valuables.? - Please leave all valuables, including medications, at home the day of surgery. If you are going home after surgery, a licensed log truck driver must drive you home.? - NO public transportation without another adult if you receive anesthesia. - We recommend that an adult stay with you for 24 hours following discharge. - We also recommend that you do not drive, make important decision, drink alcoholic beverages, or take any drugs that were not prescribed by your health care provider for at least 24 hours after your discharge time. Follow any additional instructions given to you from your surgeon. Telephone instructions given to _Venancio__and asked if any additional questions and then verbalized understanding. Patient advised to call surgeon office or pre surgery nurse liaison [phone] if any additional questions.
--- NOTE | 2023-11-01 20:07 | PM.IMHP ---
H&P: HPI History of Present Illness Date/Time: 11/01/23 20:07 Chief Complaint: Patient has a medial meniscal tear right knee. He has failed conservative treatment and would like to proced with Arthroscopy, partial menisectomy, proceed as indicated. Review of Systems Review of Systems: All systems reviewed & are unremarkable except as noted in HPI and below PMFSH Past Medical History Medical History Pre-syncope Surgical History Surgical History No significant past surgical history Family History Family History Mother Diabetes mellitus Father Hyperlipemia Social History Social History (Updated 10/23/23 @ 09:32 by BRANDON Messer) Years smoked: 23 Smoking status: Former smoker Tobacco type: cigarettes Second hand tobacco smoke exposure: Yes Smoking end date: 10/28/05 Alcohol intake: never Substance use: current Substance use type: marijuana Other substance usage details: 3 to 4 one hits a day Do You Feel Safe in your Home?: Yes Lack of Transportation: No Lack of Food: Never True Current Housing: I Have Housing Concerned About Future Housing: No Difficulty Paying Gas/Electric Bills: No Difficulty Paying for Meds: No Currently Unemployed: No Education: Associate Degree Difficulty w/ Childcare or Family Care: No Living arrangements: with family 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 Gender identity (if verbalized by the patient): Male Sexual Orientation (if Verbalized by the Patient): Straight or Heterosexual Spiritual care concerns: No Meds Home Medications and Allergies Home Medications Medication Instructions Recorded Confirmed Type losartan 100 1 tablet PO DAILY 05/22/23 10/29/23 History mg-hydrochlorothiazide 12.5 mg tablet metoprolol succinate 25 mg 12.5 mg PO DAILY 10/29/23 10/29/23 History tablet,extended release 24 hr Allergies Allergy/AdvReac Type Severity Reaction Status Date / Time No Known Allergies Allergy Verified 10/29/23 11:00 Exam Narrative: Patient has catching and locking of his right knee. He has a positive McMurr's, and joint line tenderness. He walks with an antalgic gait. Eyes: General: appearance normal, both eyes and all related structures Neck: Neck: supple Resp: Effort & Inspection: normal respiratory effort Cardio: Rate: regular rate Rhythm: regular rhythm Elbow X-Ray 12/22/22 Hand X-Ray 12/22/22 Knee X-Ray 09/16/23 Knee MRI 10/06/23 Tibia/Fibula X-Ray 09/03/19 Assessment and Plan Assessment and plan (1) Acute medial meniscus tear of right knee: Code(s): S83.241A - Other tear of medial meniscus, current injury, right knee, initial encounter Status: Acute Assessment and Plan: Patient has catching and locking of his Right knee. He has a large medial meniscal tear and a discoid lateral meniscus. He has failed conservative treatment and would like to proceed with arthroscopy, partial menisectomy, proceed as indicated. I deiscussed risks, benefiits, limitatins and alternatives in detail. Will proceed. (2) Discoid meniscus of right knee: Code(s): Q68.6 - Discoid meniscus Status: Acute
[2023-11-05] VITALS (9 sets, daily range): BP systolic 123–149; BP diastolic 62–89; PULSE 59–73; RESP 10–18; TEMP 36.3–36.7; O2SAT 96–100; BMI 34.5
--- NOTE | 2023-11-05 08:11 | WPDANESEPPF ---
Anes - Initial Pre Proc Eval Procedure: Operation Date: 11/05/23 10:00 Proposed Procedures p Arthroscopy Right Knee with Partial Meniscectomy, Proceed as Indicated - Yoel Gibbons MD Date/Time: 11/05/23 08:11 Surgeon: Yoel Gibbons MD Pre Op Diagnosis: Rt Knee Med Meniscal Tear Patient Data Age: 58 Gender: M Height: 1.68 m Weight: 97.2 kg Allergies Allergy/AdvReac Type Severity Reaction Status Date / Time No Known Allergies Allergy Verified 11/05/23 08:06 Home Medications Medication Instructions Recorded Confirmed Type losartan 100 1 tablet PO DAILY 05/22/23 10/29/23 History mg-hydrochlorothiazide 12.5 mg tablet metoprolol succinate 25 mg 12.5 mg PO DAILY 10/29/23 11/05/23 History tablet,extended release 24 hr Patient hx anesthesia problems: none Family hx anesthesia problems: none Results Review: All pre-operative results and documents have been reviewed as part of the pre-operative evaluation. [facility] Past Medical History Medical History Pre-syncope Surgical History Surgical History No significant past surgical history Family History Family History Mother Diabetes mellitus Father Hyperlipemia Social History Social History Years smoked: 23 Smoking status: Former smoker Tobacco type: cigarettes Second hand tobacco smoke exposure: Yes Smoking end date: 10/28/05 Alcohol intake: never Substance use: current Substance use type: marijuana Other substance usage details: 3 to 4 one hits a day Do You Feel Safe in your Home?: Yes Lack of Transportation: No Lack of Food: Never True Current Housing: I Have Housing Concerned About Future Housing: No Difficulty Paying Gas/Electric Bills: No Difficulty Paying for Meds: No Currently Unemployed: No Education: Associate Degree Difficulty w/ Childcare or Family Care: No Living arrangements: with family Occupation/Education: occupation 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 ) Neurological: alert and oriented Last oral intake: >/= 8 hours ASA classification: III Emergent: no Anesthetic plan: proceed Anesthesia type and monitoring: general LMA and standard monitoring Results Review: All pre-operative results and documents have been reviewed as part of the pre-operative evaluation. HTN, hx of palpitations, bigeminy, pt started on b saurav and did take it this morning. DWIGHT, unable to tolerate CPAP. Informed Consent: The patient's anesthetic plan and its attendant risks and benefits were discussed with the patient/family/POA. Questions were solicited and answers provided to the satisfaction of the patient/family/POA.
[2023-11-05] MEDS: ACETAMINOPHEN 500 MG TABLET 1000 MG PO (08:28)
[2023-11-05] MEDS: KETOROLAC 15 MG/ML VIAL (*BKC) IV PUSH (08:29)
[2023-11-05 08:35] LABS: Sodium 135 mmol/L (137-145)
--- NOTE | 2023-11-05 09:09 | WPDHPUPDATE1 ---
History and Physical Update Update Date/Time: 11/05/23 09:09 History and Physical has been reviewed, including an updated exam of the patient. There are NO changes in the patient's condition. Risks, benefits, and alternatives have been discussed and questions answered. Patient agrees to proceed with procedure.
[2023-11-05] MEDS: ceFAZolin 2 GM/D5W 50 ML 2 GM/50 ML BAG IVPB (09:53)
--- NOTE | 2023-11-05 10:35 | W.PM.PROC2 ---
Procedure Note - Detailed Date of Procedure 11/05/23 Pre-op Diagnosis Right Knee Medial and Lateral Meniscal Tear Post-op Diagnosis Same Procedure Performed RIGHT knee arthroscopy with partial meniscectomy, medial and lateral. Surgeon Yoel Gibbons MD Anesthesia General Description of Procedure Patient brought to operating room # 8. An anesthetic was administered. The knee was sterilely prepped and draped in the usual manner. Standard portals were used. Superior medial portal was used for the outflow cannula, inferior lateral portal was used for the scope, inferior medial portal was used for the instruments. Arthroscopy was performed, the patellar femoral joint degenerative changes. The medial compartment showed a complex tear. The lateral compartment showed a complex tear with an enlarged meniscus. The ACL was intact. Using baskets and david the meniscal tears were trimmed back to a stable base so the nothing further could be pulled into the joint. Any loose or delaminated fragments were gently trimmed to a stable base. The medial compartment showed grade 3 changes in the area of the tear, which was debrided. At this point the instruments were withdrawn, sutures placed and patient left the operating room in satisfactory condition. Estimated Blood Loss 20 Drains No Packing No Pathology None sent Complications No immediate complications Condition Stable Disposition PACU [facility] Billing Surgery - Charge Forward: Surgery Billing ([id number] Med & Lat Meniscetomy)
[2023-11-05] MEDS: LACTATED RINGERS 1,000 ML 30 ML IV CONT ×2 (10:44→11:38)
[2023-11-05] MEDS: ONDANSETRON INJ 4 MG/2 ML VIAL IV PUSH (11:34)
[2023-11-05] MEDS: oxyCODONE HCL (*CRX) 5 MG TAB IR PO (11:54)
== END 2023-11-05 12:48 | disposition home or self-care (01) ==
PROVIDERS: Anesthesiology; PCP Family Medicine; Visit Provider Orthopaedic Surgery
PROC: (CPT 29870; principal; 2023-11-05 10:00)
DX: S83.231A Complex tear of medial meniscus, current injury, right knee, initial encounter (principal); S83.271A Complex tear of lateral meniscus, current injury, right knee, initial encounter; Q68.6 Discoid meniscus; E66.9 Obesity, unspecified; Z68.34 Body mass index [BMI] 34.0-34.9, adult; Z87.891 Personal history of nicotine dependence; X58.XXXA Exposure to other specified factors, initial encounter
CPT/HCPCS: 29880; 36415; 84295; A9270; J0690; J1100; J1885; J2250; J2405; J2704; J3010; J7120

== ENCOUNTER 2023-12-09 08:40 | Emergency (ER) | payer BC, SELFPAY ==
[2023-12-09] VITALS (8 sets, daily range): BP systolic 113–135; BP diastolic 71; PULSE 63–110; RESP 14–23; TEMP 36.2; O2SAT 97–100
--- NOTE | ~2023-12-09 | CT_ITS ---
EXAMINATION: CT brain wo con DATE: 12/09/2023 09:53 INDICATION: Syncope and weakness TECHNIQUE: Computed tomography (CT) of the head was performed without intravenous contrast. Sagittal and coronal reconstructions were performed. The mA was adjusted according to patient size. Iterative reconstruction technique was employed. The dose-length product was 681.00 mGy-cm. COMPARISON: head CT dated 10/19/2021 FINDINGS: No acute intracranial hemorrhage, acute infarction or abnormal extra axial fluid collection. There is mild scattered white matter hypoattenuation consistent with chronic small vessel ischemic disease. A gain seen is a empty sella with small amount of pituitary tissue appearing flattened along the floo r of the otherwise CSF filled sella. Ventricles are normal and symmetric. No mass/mass effect. Mucosa l thickening in the paranasal sinuses, most prominent at the bilateral ethmoid sinuses. The orbits an d mastoid air cells are normal. IMPRESSION: 1. No acute intracranial process. 2. Chronic empty sella . Reviewed, dictated and finalized at location A. OUT PERSON
--- NOTE | ~2023-12-09 | XR_ITS ---
EXAMINATION: XR chest 2V DATE: 12/09/2023 09:54 INDICATION: Syncope, weakness and cough TECHNIQUE: PA and lateral views of the chest were obtained. COMPARISON: Chest radiograph dated 10/20/20 FINDINGS: The lungs are clear with no focal airspace opacities, pulmonary edema, pleural effusion or pneumothor ax. The cardiomediastinal silhouette is normal. Mild midthoracic spondylosis with chronic minimal to mild anterior wedging of a few mid thoracic vertebral bodies, likely T5-T9. IMPRESSION: 1. No acute cardiopulmonary disease. Reviewed, dictated and finalized at location A. [employer]
--- NOTE | 2023-12-09 08:48 | ECG_ITS ---
Test Date: 2023-12-09 08:56:06 Measurements Intervals Lindstrom Rate: 71 P: 32 MD: 180 QRS: 27 QRSD: 106 T: 34 QT: 387 QTc: 421 Interpretive Statements SINUS RHYTHM WITH FREQUENT SUPRAVENTRICULAR PREMATURE COMPLEXES IN A BIGEMINAL PATTERN BASELINE ARTIFACT- I, III, AVR, AVL, AVF, V1-V6 ABNORMAL ECG No previous ECG available for comparison Electronically Signed On 12-09-2023 09:29:29 [employer] by Parveen Wooten D.O.
--- NOTE | 2023-12-09 08:54 | ED_ITS ---
HPI - Weakness General Chief complaint: Weakness Stated complaint: weakness Time Seen by Provider: 12/09/23 08:45 Source: patient Mode of arrival: EMS Limitations: no limitations History of Present Illness HPI Narrative: patient is a 58-year-old male with a near syncopal episode prior to arrival. 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 He gets lightheaded and dizzy. He called EMS. He sees Cardiology for elevated blood pressure control. There is a history per patient that he has atrial fibrillation but there is no blood thinners (EKG in the emergency room today does not show AFib but there is bigeminy supraventricular). He is on a beta-saurav. This is not his 1st time having this syndrome where he has had at least 5 or 6 more times in the past year. MD Complaint: generalized weakness ( Near-syncope episode) Onset (ago): hour(s) (1) Duration: intermittent Location: generalized Migration: none Severity: mild Severity scale (1-10): 2 Quality: numbness ( bilateral hands) Relieving factors: none Exacerbating factors: none Context: other ( exposure to sick contacts at home) Associated symptoms: denies other symptoms Related Data Home Medications Medication Instructions Recorded Confirmed losartan 100 1 tablet PO DAILY 05/22/23 12/04/23 mg-hydrochlorothiazide 12.5 mg tablet metoprolol succinate 25 mg 12.5 mg PO DAILY 10/29/23 12/04/23 tablet,extended release 24 hr Allergies Allergy/AdvReac Type Severity Reaction Status Date / Time No Known Allergies Allergy Verified 12/04/23 12:58 Review of Systems Review of Systems: All systems reviewed & are unremarkable except as noted in HPI and below Constitutional: Constitutional: Reports no additional constitutional complaints Eyes: Eyes: Reports no additional eye complaints ENT: Reports system reviewed and no additional complaints, except as documented Cardiovascular: Cardiovascular: Reports no additional cardiovascular complaints Respiratory: Respiratory: Reports no additional respiratory complaints Gastrointestinal: Gastrointestinal: Reports no additional gastrointestinal complaints Genitourinary: Genitourinary: Reports no additional male genitourinary complaints Musculoskeletal: Musculoskeletal: Reports no additional musculoskeletal complaints Integumentary/Breasts: Skin/Breast: Reports system reviewed and no additional complaints, except as docu Neurologic: Reports system reviewed and no additional complaints, except as documented Psychiatric: Psychiatric: Reports no additional psychiatric complaints Endocrine: Endocrine: Reports no additional endocrine complaints Hematologic/Lymphatic: Hematologic/Lymphatic: Reports no additional hematologic/lymphatic complaints Allergic/Immunologic: Allergic/Immunologic: Reports no additional allergic/immunologic complaints [facility] Past Medical History Medical History Pre-syncope Surgical History Surgical History History of knee surgery No significant past surgical history Family History Family History Mother Diabetes mellitus Father Hyperlipemia Social History Social History Years smoked: 23 Smoking status: Former smoker Tobacco type: cigarettes Second hand tobacco smoke exposure: Yes Smoking end date: 10/28/05 Alcohol intake: never Substance use: current Substance use type: marijuana Other substance usage details: 3 to 4 one hits a day Current Housing: Decline to Answer Concerned About Future Housing: Decline to Answer Difficulty Paying Gas/Electric Bills: Decline to Answer Difficulty Paying for Meds: Decline to Answer Currently Unemployed: Decline to Answer Education: Decline to Answer Difficulty w/ Childcare or Family Care: Decline to Answer Living arrangements: with family Occupation/Education: occupation 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 Gender identity (if verbalized by the patient): Male Sexual Orientation (if Verbalized by the Patient): Straight or Heterosexual Spiritual care concerns: No Exam Const: General: healthy appearing Nutritional Appearance: well nourished Orientation/consciousness: patient oriented x3 Limitations: no limitations HENMT: Head: normal to inspection Ears: external ears normal Face/Nose/Sinus: Normal external nose present Eyes: Conjunctivae: conjunctivae normal Pupils: Equal, round and reactive pupils present EOM: EOMs intact bilaterally Neck: Neck: normal visual inspection Chest: Chest palpation & inspection: normal inspection of the chest Resp: Effort & Inspection: normal respiratory effort and not labored Auscultation: clear to auscultation bilaterally and no crackles Cardio: Rate: regular rate Rhythm: regular rhythm Heart sounds: no murmurs GI: Inspection: non-distended GI Palp: Yes Soft to palpation and No Tenderness to palpation present (GI) Auscultation: normal bowel sounds : General: Yes bladder normal to palpation Back/Spine/Pelvis: Back: no CVA tenderness Skin: General skin exam: normal color Rashes: no rashes Wounds: no wounds Neuro: General: patient oriented x3 Cranial nerves: Yes Nystagmus not present Speech: normal speech Gait exam (Neuro): Normal gait present Other: fast exam negative GCS is 15 NIH score 0 Extrem: General: normal to inspection Psych: Mental Status: mental status grossly normal Affect: normal affect Attitude: cooperative Course Vital Signs Vital signs: Vital Signs Temperature 36.2 C L 12/09/23 08:40 Pulse Rate 110 H 12/09/23 08:40 Respiratory Rate 18 12/09/23 08:40 Blood Pressure 135/71 12/09/23 08:40 Pulse Oximetry 98 12/09/23 08:40 Oxygen Delivery Room Air 12/09/23 08:40 Temperature 36.2 C L 12/09/23 08:40 Pulse Rate 84 12/09/23 10:15 Respiratory Rate 23 H 12/09/23 10:15 Blood Pressure 113/71 12/09/23 09:16 Pulse Oximetry 97 12/09/23 10:15 Oxygen Delivery Room Air 12/09/23 10:00 MDM - Weakness MDM Narrative Medical decision making narrative: patient is a 58-year-old male with a near syncopal episode. This is a recurrent event. He does see a building energy consultant. It appears he does have supraventricular bigeminy. medical history in the chart does not say anything about AFib but there is bigeminy. We will do a neurological workup at this ti me. all in all his symptoms appear to be related to the COVID positive. Medical Records Attestation: I reviewed the patient's medical records. Medical records narrative: No history of AFib. Lab Data Attestation: I reviewed the patient's lab results. 12/09/23 09:15 12/09/23 09:15 Labs: Lab Results 12/09/23 Range/Units 09:15 WBC 9.8 (4.8-10.8) K/mm3 RBC 4.68 L (4.70-6.10) M/mm3 Hgb 14.4 (14.0-18.0) g/dL Hct 40.7 (40.0-54.0) % MCV 87.0 (78.0-102.0) fL MCH 30.8 (27.0-31.0) pg MCHC 35.4 (32-36) g/dL RDW 12.0 (11.6-14.4) % Plt Count 269 (150-420) K/mm3 MPV 8.8 (8.7-11.0) fl Immature Gran % (Auto) 0.6 H (0.0-0.0) % Neut % (Auto) 66.7 (50.0-70.0) % Lymph % (Auto) 19.4 (18.0-42.0) % [place] % (Auto) 12.8 H (2.0-11.0) % Eos % (Auto) 0.2 L (1.0-6.0) % Baso % (Auto) 0.3 (0.0-1.0) % Lymph # (Auto) 1.90 (1.10-4.50) K/mm3 [place] # (Auto) 1.25 H (0.10-0.90) K/mm3 Eos # (Auto) 0.02 (0.02-0.50) K/mm3 Baso # (Auto) 0.03 (0.00-0.10) K/mm3 Abs Immat Gran (auto) 0.06 H (0.00-0.00) K/mm3 Absolute Neuts (auto) 6.54 (1.70-7.20) K/mm3 Absolute Nucleated RBC 0.00 (0.00-0.00) K/mm3 Nucleated RBC % 0.0 (0-0.0) % PT 10.3 (9.50-12.1) Seconds INR 0.9 APTT 29.6 (23.9-30.70) Sec Sodium 137 (136-145) mmol/L Potassium 4.0 (3.5-5.1) mmol/L Chloride 99 (98-108) mmol/L Carbon Dioxide 24 (21-32) mmol/L Anion Gap 14 H (4-12) mmol/L BUN 17 (7-18) mg/dL Creatinine 1.50 H (0.70-1.30) mg/dL Estim Creat Clear Calc 54 ml/min Estimated GFR 48 L (59 - ) Glucose 114 H (70-99) mg/dL Calculated Osmolality 286 (285-295) mOsm/kg Lactic Acid 1.8 (0.4-2.0) mmol/L Calcium 8.9 (8.5-10.1) mg/dL Magnesium 2.3 (1.8-2.4) mg/dL Total Bilirubin 0.5 (0.00-1.00) mg/dL AST 16 (15-37) U/L ALT 33 (16-63) U/L Alkaline Phosphatase 78 (46-116) U/L Troponin I 6.0 (0.00-60.4) ng/L NT-Pro-B Natriuret Pep 92 (0-125) pg/mL Total Protein 7.7 (6.4-8.2) g/dL Albumin 3.8 (3.4-5.0) g/dL Urine Color Pending Urine Appearance Pending Urine pH Pending Ur Specific [place] Pending Urine Protein Pending Urine Glucose (UA) Pending Urine Ketones Pending Ur Blood (Man) Pending Urine Nitrate Pending Urine Bilirubin Pending Urine Urobilinogen Pending Leukocyte Esterase Rfl Pending Urine Opiates Screen Pending Urine Methadone Screen Pending Ur Barbiturates Screen Pending Ur Phencyclidine Scrn Pending Ur Amphetamine Screen Pending U Benzodiazepines Scrn Pending Urine Cocaine Screen Pending U Cannabinoids Screen Pending Influenza A (RT-PCR) Negative (Negative) Influenza B (RT-PCR) Negative (Negative) RSV (RT-PCR) Negative (Negative) SARS-CoV-2 RNA (RT-PCR) Positive A (Negative) Group A Strep (PCR) Not detected (Negative) Imaging Data Attestation: I personally reviewed and interpreted this imaging study as follows: Radiologist's impression: CT scan of the head is negative for acute process chest x-ray is negative for acute process ECG Data EKG #1: Attestation: I personally reviewed and interpreted this ECG as follows: ECG completion date: 12/09/23 ECG completion time: 09:01 EKG Interpretation: normal rate, sinus rhythm, PACs ( Supraventricular bigeminy), non-specific ST changes, normal QRS, normal QT and NL axis Discharge Plan Discharge Clinical Impression: COVID, Acute dehydration, Postural dizziness with near syncope Patient Disposition: Home, Self-Care Condition: Stable Instructions: COVID-19 (Coronavirus Disease 2019) (ED) Additional Instructions: please follow-up with primary doctor in the next week. You must stay home for 5 days total of this illness. If you have fever on the 5th day you must stay another 24 hours until fever resolves. Prescriptions: No Action losartan-hydrochlorothiazide 100-12.5 mg tablet 1 tablet PO DAILY metoprolol succinate 25 mg tablet extended release 24 hr 12.5 mg PO DAILY Follow-up/Referrals: Sergey Khan MD [Primary Care Provider] - Time of Disposition: 10:25
[2023-12-09] MEDS: SODIUM CHLORIDE 0.9% IV 1,000 ML 999 ML IV CONT (09:19)
[2023-12-09 09:28] LABS: INR 0.9; Partial Thromboplastin Time 29.6 Sec (23.9-30.70); Prothrombin Time 10.3 Seconds (9.50-12.1)
[2023-12-09 09:32] LABS: Basophils Absolute Auto 0.03 K/mm3 (0.00-0.10); Basophils Percent Auto 0.3 % (0.0-1.0); Eosinophils Absolute Auto 0.02 K/mm3 (0.02-0.50); Eosinophils Percent Auto 0.2 % (1.0-6.0); Hematocrit 40.7 % (40.0-54.0); Hemoglobin 14.4 g/dL (14.0-18.0); Immature Granulocyte Absolute 0.06 K/mm3 (0.00-0.00); Immature Granulocyte Percent A 0.6 % (0.0-0.0); Lymphocytes Percent Auto 19.4 % (18.0-42.0); Mean Corpuscular HGB Conc 35.4 g/dL (32-36); Mean Corpuscular Hemoglobin 30.8 pg (27.0-31.0); Mean Platelet Volume 8.8 fl (8.7-11.0); Monocytes Absolute Auto 1.25 K/mm3 (0.10-0.90); Monocytes Percent Auto 12.8 % (2.0-11.0); Neutrophils Absolute Auto 6.54 K/mm3 (1.70-7.20); Neutrophils Percent Auto 66.7 % (50.0-70.0); Platelet Count Result 269 K/mm3 (150-420); Red Blood Count 4.68 M/mm3 (4.70-6.10); White Blood Count 9.8 K/mm3 (4.8-10.8)
[2023-12-09 09:44] LABS: Alanine Aminotransferase 33 U/L (16-63); Albumin Level 3.8 g/dL (3.4-5.0); Alkaline Phosphatase 78 U/L (46-116); Anion Gap 14 mmol/L (4-12); Aspartate Amino Transferase 16 U/L (15-37); Bilirubin,Total 0.5 mg/dL (0.00-1.00); Blood Urea Nitrogen 17 mg/dL (7-18); Calcium 8.9 mg/dL (8.5-10.1); Carbon Dioxide 24 mmol/L (21-32); Chloride 99 mmol/L (98-108); Estimated CRCL calculation 54 ml/min; Estimated Glomerular Filt Rate 48; Glucose 114 mg/dL (70-99); Magnesium 2.3 mg/dL (1.8-2.4); NT Pro B Type Natriuretic Pept 92 pg/mL (0-125); Osmolality Calculated 286 mOsm/kg (285-295); Sodium 137 mmol/L (136-145); Total Protein 7.7 g/dL (6.4-8.2)
[2023-12-09 10:06] LABS: Strep Group A RT-PCR NOT DETECTED (Negative)
[2023-12-09 10:13] LABS: Lactic Acid Reflex 1.8 mmol/L (0.4-2.0)
[2023-12-09 10:14] LABS: SARS-CoV-2 RNA PCR Positive (Negative)
[2023-12-09 10:15] LABS: Influenza A QL RT-PCR Negative (Negative); Influenza B QL RT-PCR Negative (Negative); RSV RNA, RT-PCR Negative (Negative)
[2023-12-09 10:28] LABS: Add Urine Microscopic? YES; Bilirubin Urine Negative (Negative); Blood Urine Negative (Negative); Color Urine Yellow (Yellow); Glucose Urine UA Negative (Negative); Ketones Urine Negative (Negative); Leukocyte Esterase Ur Negative LEU/UL (Negative); Nitrate Urine Negative (Negative); Protein Urine 1+ (Negative); Urobilinogen Urine 0.2 mg/dL (0.2-1.0)
[2023-12-09 10:33] LABS: Amphetamine Screen Urine Negative (Negative); Barbiturate Screen Urine Negative (Negative); Benzodiazepines Screen Urine Negative (Negative); Cannabinoid Screen Urine Positive (Negative); Cocaine Screen Urine Negative (Negative); Methadone Screen Urine Negative (Negative); Opiate Screen Urine Positive (Negative); Phencyclidine Screen Urine Negative (Negative)
[2023-12-09 10:56] LABS: Appearance Urine Sl Cloudy (Clear)
[2023-12-09 10:57] LABS: Amorphous Sediment Urine Moderate; Hyaline Casts Urine 50+ /lpf; Mucus Urine Heavy /lpf
== END 2023-12-09 10:26 | disposition home or self-care (01) ==
PROVIDERS: Emergency Provider Emergency Medicine; PCP Family Medicine
DX: U07.1 COVID-19 (principal); E86.0 Dehydration; R42 Dizziness and giddiness; R55 Syncope and collapse; Z79.899 Other long term (current) drug therapy
CPT/HCPCS: 36415; 70450; 71046; 80053; 80307; 81001; 83605; 83735; 83880; 84484; 85025; 85610; 85730; 87637; 87651; 93005; 96360; 99284; J7030

== ENCOUNTER 2023-12-26 08:13 | Outpatient (RCR) | payer OTHER, SELFPAY ==
--- NOTE | 2023-12-28 08:03 | OPREHPOC ---
Outpatient Therapy Plan of Care This is a Multidisciplinary Plan of Care that may contain components documented by all disciplines (PT, OT, and ST.) PT Problem 1 PT Problem #1 Knowledge Deficit PT Goal 1 Goal / Goal Update 1. independent and compliant with HEP Target Visit 2 Progress Not Met PT Problem 2 PT Problem #2 Pain PT Goal 1 Goal / Goal Update 1. reduce pain to 1/10 at worst or less Target Visit 14 Progress Not Met PT Problem 3 PT Problem #3 Impaired Range of Motion PT Goal 1 Goal / Goal Update 1. 0-130 degrees or better active R knee rom Target Visit 14 Progress Not Met PT Problem 4 PT Problem #4 Impaired Strength PT Goal 1 Goal / Goal Update 1. 5/5 R knee strength 2. 5/5 R ankle DF. met 3. 5/5 or better bilateral hip strength overall. met Target Visit 14 Progress Partially Met PT Problem 5 PT Problem #5 Impaired Functional Mobil PT Goal 1 Goal / Goal Update 1. LEFS to display 20% or less functional deficits . not met 2. patient to ambulate with normal gait mechanics without an AD or brace. met 3. patient to ambulate up and down steps with reciprocal mechanics and 1 hand rail assist or less. met 4. patient to return to daily walking regime. not met 5. patient to return to prior level work activities/duties. not met Target Visit 14 Progress Not Met
--- NOTE | 2023-12-28 08:03 | PTOPREEVAL ---
Assessment and note entered by JT File, PT Evaluation Information Assessment Status Re-evaluation Diagnosis s/p right knee arthroscopy ICD-10 Condition Codes (PT) M25.561 Onset 11/05/23 Subjective Information patient is between 7 and 8 weeks post op today. he reports continued feeling of tightness in the R knee. 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 he reports he was told by the MD that the swelling and inflammation may last for several more weeks, but to continue to exercise. patient must stand for several hours on a foam pad to return to prior level work performance. 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 he displays improved bilateral hip strength, and improve R knee extension active rom. however, he is still lacking full R knee flexion active rom, full R knee extension strength, and ability to tolerate standing and walking to return to prior level work activities. he would benefit from continued skilled PT services to work on achieving the remainder of his objective/functional goals to safely return to prior level work duties. Plan of Care Interventions Gait Training,Manual Therapy,Neuro Re-education, Patient/Caregiver Educati,Therapeutic Activities, Therapeutic Exercise PT Services Indicated Yes Treatment Frequency and continue skilled PT 1x weekly for 2 more visits Duration These treatments will address the objective and functional deficits as defined above. The patient will be advanced safely and appropriately in order for the patient to progress towards his/her prior level of function. Additional exercises will be introduced and as well as a comprehensive home exercise program upon discharge, if needed, ?to ensure carryover of functional gains achieved in the clinic. This treatment plan has been reviewed and agreement upon by the patient.
--- NOTE | 2024-01-08 08:26 | OPREHPOC ---
Outpatient Therapy Plan of Care This is a Multidisciplinary Plan of Care that may contain components documented by all disciplines (PT, OT, and ST.) PT Problem 1 PT Problem #1 Knowledge Deficit PT Goal 1 Goal / Goal Update 1. independent and compliant with HEP Target Visit 2 Progress Met PT Problem 2 PT Problem #2 Pain PT Goal 1 Goal / Goal Update 1. reduce pain to 1/10 at worst or less Target Visit 14 Progress Not Met PT Problem 3 PT Problem #3 Impaired Range of Motion PT Goal 1 Goal / Goal Update 1. 0-130 degrees or better active R knee rom Target Visit 14 Progress Not Met PT Problem 4 PT Problem #4 Impaired Strength PT Goal 1 Goal / Goal Update 1. 5/5 R knee strength. met 2. 5/5 R ankle DF. met 3. 5/5 or better bilateral hip strength overall. met Target Visit 14 Progress Met PT Problem 5 PT Problem #5 Impaired Functional Mobil PT Goal 1 Goal / Goal Update 1. LEFS to display 20% or less functional deficits . not met 2. patient to ambulate with normal gait mechanics without an AD or brace. met 3. patient to ambulate up and down steps with reciprocal mechanics and 1 hand rail assist or less. met 4. patient to return to daily walking regime. not met 5. patient to return to prior level work activities/duties. not met Target Visit 14 Progress Not Met
--- NOTE | 2024-01-08 08:27 | PTOPREEVAL ---
Assessment and note entered by JT File, PT Evaluation Information Assessment Status Re-evaluation Diagnosis s/p right knee arthroscopy ICD-10 Condition Codes (PT) M25.561 Onset 11/05/23 Subjective Information patient reports he continues to have some issues with the R knee. he reports he has been DC'd from his surgeons care, but he continues to have discomfort and swelling in the R knee. he reports he also occasionally gets a Stabbing pain along the side of the R knee. he reports this pain is random, but will nearly bring him to the ground. he reports he has not yet returned to work. he reports he does plan on returning to work this coming sunday01/14/24. he reports he plans to take breaks every hour, and go home at lunch to ice and elevate. he reports in general he does feel pretty good, but just has some small issues that pop up from time to time. Reported Pain Level Pain Score 0: Self Report Additional Pain Score Comments stabbing pain gets to 9/10 at worst and last for about 20 seconds. 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 he displays adequate R knee rom, and full strength of the R knee. however, he continues to have bouts of intense pain over the lateral R knee. patient reports he does not return to the surgeon for any more follows ups, and was DC'd from his care. at this time, patient is going to hold continued skilled PT and return to work. he will follow up with his PCP, work comp, and PT if he needs to return to skilled PT for anything concerning the R knee. Plan of Care Interventions Gait Training,Manual Therapy,Neuro Re-education, Patient/Caregiver Educati,Therapeutic Activities, Therapeutic Exercise PT Services Indicated Yes Treatment Frequency and hold PT, return to work trial. Duration These treatments will address the objective and functional deficits as defined above. The patient will be advanced safely and appropriately in order for the patient to progress towards his/her prior level of function. Additional exercises will be introduced and as well as a comprehensive home exercise program upon discharge, if needed, ?to ensure carryover of functional gains achieved in the clinic. This treatment plan has been reviewed and agreement upon by the patient.
== END 2024-03-25 23:59 | disposition home or self-care (01) ==
LOC: CHSPT 08:13
PROVIDERS: PCP Family Medicine; Visit Provider Orthopaedic Surgery
DX: M25.561 Pain in right knee (principal); Z79.890 Hormone replacement therapy
CPT/HCPCS: 97110; 97530